=== PATIENT | female | born 1985 | race African-American/Black ===

== ENCOUNTER 2018-08-27 14:04 | Observation (INO) | payer MEDICARE, MEDICAID ==
[~2018-08-27] VITALS: Ht 167.6 cm; Wt 99.8 kg
[2018-08-27] MEDS ORDERED: ACETAMINOPHEN 500MG TABLET PO ONE (14:45)
[2018-08-27 15:22] LABS: CLARITY URINE CLOUDY (CLEAR); COLOR URINE YELLOW (YELLOW); SPECIFIC GRAVITY URINE 1.022 (1.005-1.030)
[2018-08-27 15:23] LABS: KETONES URINE NEGATIVE (NEGATIVE); LEUKOCYTE ESTERASE URINE 1+ (NEGATIVE); NITRITE URINE POSITIVE (NEGATIVE); OCCULT BLOOD URINE 3+ (NEGATIVE); PROTEIN URINE 2+ (NEGATIVE)
[2018-08-27] MEDS ORDERED: PNV1TABL50 PO (16:46)
== END 2018-08-27 16:50 | disposition home or self-care (01) ==
LOC: 8 EST LDRP 14:04
PROVIDERS: ADMIT Obstetrics & Gynecology; ATTEND Obstetrics & Gynecology
DX: O36.8120 Decreased fetal movements, second trimester, not applicable or unspecified (principal); O26.892 Other specified pregnancy related conditions, second trimester; R10.2 Pelvic and perineal pain; N89.8 Other specified noninflammatory disorders of vagina; Z3A.26 26 weeks gestation of pregnancy
CPT/HCPCS: 81003; 87077; 87086; 87186; 99281; G0378

== ENCOUNTER 2018-11-12 07:42 | Observation (INO) | payer MEDICARE, MEDICAID ==
[~2018-11-12] VITALS: Ht 167.6 cm; Wt 105.2 kg
[~2018-11-12 07:42] MED LIST: PNV1TABL50 PO
== END 2018-11-12 09:10 | disposition home or self-care (01) ==
LOC: 8 EST LDRP 07:42
PROVIDERS: ADMIT Obstetrics & Gynecology; ATTEND Obstetrics & Gynecology
DX: O26.893 Other specified pregnancy related conditions, third trimester (principal); R10.9 Unspecified abdominal pain; Z3A.37 37 weeks gestation of pregnancy
CPT/HCPCS: 99281; G0378

== ENCOUNTER 2018-11-14 16:18 | Inpatient (IN) | payer MEDICARE, MEDICAID ==
[~2018-11-14] VITALS: Ht 170.2 cm; Wt 105.7 kg
[2018-11-14] MEDS ORDERED: CARBOPROST TROMETHAMINE 250 MCG/ML AMPUL IM PRN (17:15)
[2018-11-14] MEDS ORDERED: METHYLERGONOVINE MALEATE 0.2 MG/ML IM PRN (17:15)
[2018-11-14] MEDS ORDERED: OXYTOCIN 20 UNITS in LACTATED RINGERS 1,000 ML IV SCH (17:15)
[2018-11-14] MEDS ORDERED: CITRIC ACID/SODIUM CITRATE SOLN 30ML UDC PO NR (17:30)
[2018-11-14] MEDS ORDERED: LIDOCAINE HCL/PF 1% 10 MG/ML 5ML VIAL ONE (17:45)
[2018-11-14] MEDS: LACTATED RINGERS 1,000 ML IV SCH ×2 (17:57→19:25)
[2018-11-14] MEDS ORDERED: FENTANYL CITRATE/PF 50MCG/ML 2ML VIAL ONE (18:23)
[2018-11-14] MEDS ORDERED: MIDAZOLAM HCL 2 MG/2 ML VIAL ONE ×3 (18:23→20:15)
[2018-11-14] MEDS ORDERED: CEFAZOLIN SODIUM 1000MG/VIAL ONE (18:24)
[2018-11-14] MEDS ORDERED: MORPHINE SULFATE/PF 1MG/ML 10ML AMP ONE (18:24)
[2018-11-14] MEDS ORDERED: BUPIVACAINE HCL/DEXTROSE/PF 0.75% 2ML AMP INJ ONE (18:25)
[2018-11-14] MEDS ORDERED: EPHEDRINE SULFATE 50MG/ML VIAL ONE (18:25)
[2018-11-14] MEDS ORDERED: PHENYLEPHRINE HCL 10 MG/ML 1ML (IV VIAL) IV ONE (18:25)
[2018-11-14] MEDS ORDERED: GLYCOPYRROLATE 0.2 MG/ML 2ML VIAL ONE (18:25)
[2018-11-14 19:14] LABS: BASOPHILS % 0.4 % (0.0-2.0); EOSINOPHILS % 0.6 % (0.0-5.0); HEMATOCRIT. 37.3 % (36.0-48.0); HEMOGLOBIN. 12.4 g/dL (12.0-16.0); LYMPHOCYTES % 21.9 % (20.0-50.0); MEAN CORPUSCULAR HEMOGLOBIN 30.3 pg (28.0-32.0); MEAN PLATELET VOLUME 10.2 fl (7.4-10.4); MONOCYTES % 7.1 % (2.0-8.0); PLATELET 153 x1000/uL (130-400); RED CELL DISTRIBUTION WIDTH 14.2 % (11.6-14.6)
[2018-11-14 19:15] LABS: CLARITY URINE CLOUDY (CLEAR); COLOR URINE YELLOW (YELLOW); KETONES URINE 1+ (NEGATIVE); LEUKOCYTE ESTERASE URINE 3+ (NEGATIVE); NITRITE URINE NEGATIVE (NEGATIVE); OCCULT BLOOD URINE 2+ (NEGATIVE); PROTEIN URINE NEGATIVE (NEGATIVE); SPECIFIC GRAVITY URINE 1.008 (1.005-1.030); UROBILINOGEN URINE 0.2 E.U./dL (0.2-1.0)
[2018-11-14 19:25] LABS: *AMPHETAMINES SCREEN URINE NEGATIVE (NEGATIVE); *BARBITURATES SCREEN URINE NEGATIVE (NEGATIVE); *BENZODIAZEPINES SCREEN URINE NEGATIVE (NEGATIVE)
[2018-11-14 19:26] LABS: *COCAINE SCREEN URINE NEGATIVE (NEGATIVE); CANNABINOID URINE SCREEN NEGATIVE (NEGATIVE); METHADONE URINE SCREEN NEGATIVE (NEGATIVE); OPIATES URINE SCREEN NEGATIVE (NEGATIVE); PHENCYCLIDINE URINE SCREEN NEGATIVE (NEGATIVE)
[2018-11-14 19:26] LABS: INR 0.9; PARTIAL THROMBOPLASTIN TIME 29.1 sec (23.4-31.0); PROTHROMBIN TIME 9.8 sec (9.6-11.0)
[2018-11-14 19:58] LABS: HEPATITIS B SURFACE ANTIGEN NEGATIVE
[2018-11-14] MEDS ORDERED: OXYTOCIN 10 UNITS/ML 1ML ONE (20:10)
[2018-11-14] MEDS ORDERED: KETOROLAC 60MG/2ML VIAL IM ONE (20:39)
[2018-11-14] MEDS ORDERED: DEXT 5%/LR + PITOCIN 20UNITS/L 1,000 ML IV SCH (20:51)
[2018-11-14] MEDS ORDERED: RHO(D) IMMUNE GLOBULIN 300 MCG/SYR IM PRN (21:00)
[2018-11-14] MEDS ORDERED: IBUPROFEN 400MG TABLET PO PRN (21:00)
[2018-11-14] MEDS ORDERED: BISACODYL 10MG SUPP PR PRN (21:00)
[2018-11-14] MEDS ORDERED: KETOROLAC 30MG/ML VIAL IV PRN (21:15)
[2018-11-14] MEDS ORDERED: BUTORPHANOL TARTRATE 2 MG/ML VIAL IV PRN (21:15)
[2018-11-14] MEDS ORDERED: NALOXONE HCL 0.4 MG/ML 1ML VIAL IV PRN (21:15)
[2018-11-14 23:00] VITALS: BP 125/77
[2018-11-14 23:30] VITALS: BP 122/70
[2018-11-14] MEDS: DIPHENHYDRAMINE 50MG/ML VIAL IV PRN (23:35)
[2018-11-15] VITALS: BP 118/64
[2018-11-15 03:30] VITALS: BP 125/73
[2018-11-15] MEDS: IBUPROFEN 800MG TABLET PO PRN ×2 (08:17→16:34)
[2018-11-15 08:30] VITALS: BP 111/69
[2018-11-15 12:00] LABS: BASOPHILS % 0.4 % (0.0-2.0); EOSINOPHILS % 0.7 % (0.0-5.0); HEMATOCRIT. 35.3 % (36.0-48.0); HEMOGLOBIN. 11.9 g/dL (12.0-16.0); LYMPHOCYTES % 11.5 % (20.0-50.0); MEAN CORPUSCULAR HEMOGLOBIN 30.5 pg (28.0-32.0); MEAN CORPUSCULAR VOLUME 90.7 fL (81.0-99.0); MEAN PLATELET VOLUME 10.3 fl (7.4-10.4); MONOCYTES % 9.6 % (2.0-8.0); NEUTROPHILS % 77.8 % (40.0-76.0); PLATELET 147 x1000/uL (130-400); RED BLOOD CELL COUNT 3.89 mill/uL (4.2-5.4); RED CELL DISTRIBUTION WIDTH 14.2 % (11.6-14.6)
[2018-11-15 16:45] VITALS: BP 113/75
[2018-11-15 20:00] VITALS: BP 118/76
[2018-11-15] MEDS: DIPHENHYDRAMINE 50MG/ML VIAL IV PRN (20:37)
[2018-11-15] MEDS ORDERED: HYDROMORPHONE HCL/PF 2MG/ML CPJ IM PRN (21:00)
[2018-11-15 21:14] LABS: BASOPHILS % 0.6 % (0.0-2.0); EOSINOPHILS % 1.3 % (0.0-5.0); HEMOGLOBIN. 11.7 g/dL (12.0-16.0); LYMPHOCYTES % 16.5 % (20.0-50.0); MEAN CORPUSCULAR HEMOGLOBIN 30.5 pg (28.0-32.0); MEAN PLATELET VOLUME 10.2 fl (7.4-10.4); MONOCYTES % 8.7 % (2.0-8.0); NEUTROPHILS % 72.9 % (40.0-76.0); PLATELET 147 x1000/uL (130-400); RED BLOOD CELL COUNT 3.85 mill/uL (4.2-5.4); RED CELL DISTRIBUTION WIDTH 14.2 % (11.6-14.6)
[2018-11-15] MEDS: CEFAZOLIN 2,000 MG in DEXT 5% WATER 100 ML IV SCH (21:22)
[2018-11-16] MEDS: CEFAZOLIN 2,000 MG in DEXT 5% WATER 100 ML IV SCH ×4 (02:27→19:56)
[2018-11-16] MEDS: ACETAMINOPHEN WITH CODEINE 300/30MG TABLET PO PRN ×2 (03:55→08:32)
[2018-11-16 04:30] VITALS: BP 115/68
[2018-11-16] MEDS: IBUPROFEN 800MG TABLET PO PRN ×2 (08:32→17:44)
[2018-11-16 09:00] VITALS: BP 124/79
[2018-11-16 16:00] VITALS: BP 128/80
[2018-11-16 22:00] VITALS: BP 116/77
[2018-11-16] MEDS ORDERED: TETANUS, DIPHTHERIA, PERTUSSIS VAC/PF 0.5ML (>7YR OLD) IM ONE (23:45)
[2018-11-17] MEDS: CEFAZOLIN 2,000 MG in DEXT 5% WATER 100 ML IV SCH ×2 (01:52→08:36)
[2018-11-17] MEDS: IBUPROFEN 800MG TABLET PO PRN ×2 (05:40→11:16)
[2018-11-17 06:00] VITALS: BP 118/75
[2018-11-17 08:00] VITALS: BP 120/74
[2018-11-17] MEDS: ACETAMINOPHEN WITH CODEINE 300/30MG TABLET PO PRN (08:34)
== END 2018-11-17 12:20 | disposition home or self-care (01) | DRG 787 ==
LOC: OBSVTOIN 16:18 → 8 EST LDRP 16:18 → 8EST 22:33
PROVIDERS: ADMIT Obstetrics & Gynecology; ATTEND Obstetrics & Gynecology
PROC: 10D00Z1 Extraction of Products of Conception, Low, Open Approach (ICD-10-PCS; principal; 2018-11-14)
DX: O34.211 Maternal care for low transverse scar from previous cesarean delivery (principal); O86.4 Pyrexia of unknown origin following delivery; Z3A.37 37 weeks gestation of pregnancy; Z37.0 Single live birth
CPT/HCPCS: 36415; 80305; 82565; 82947; 84520; 86592; 86703; 86762; 86850; 86900; 86920; 87070; 87340; 88307; 99281; G0378; J0690; J1200; J1885; J2250; J2274; J2370; J2590; J3010; J3490; J7060; J7120; A4315

== ENCOUNTER 2019-01-02 15:40 | Emergency (ER) | payer MEDICARE, MEDICAID | END 2019-01-02 20:04 | disposition left against medical advice (07) | LOC: ER 18:30 | DX: Z53.21 Procedure and treatment not carried out due to patient leaving prior to being seen by health care provider (principal) ==

== ENCOUNTER 2019-01-05 19:22 | Emergency (ER) | payer MEDICARE, MEDICAID ==
[~2019-01-05] VITALS: Ht 167.6 cm; Wt 97.0 kg
[2019-01-06 00:33] LABS: BASOPHILS % 0.7 % (0.0-2.0); EOSINOPHILS % 1.3 % (0.0-5.0); HEMATOCRIT. 39.3 % (36.0-48.0); HEMOGLOBIN. 13.3 g/dL (12.0-16.0); MEAN CORPUSCULAR HEMOGLOBIN 30.8 pg (28.0-32.0); MEAN PLATELET VOLUME 8.8 fl (7.4-10.4); MONOCYTES % 4.8 % (2.0-8.0); NEUTROPHILS % 54.2 % (40.0-76.0); PLATELET 157 x1000/uL (130-400); RED BLOOD CELL COUNT 4.32 mill/uL (4.2-5.4); RED CELL DISTRIBUTION WIDTH 15.4 % (11.6-14.6)
[2019-01-06 00:41] LABS: CHLORIDE 103 mEq/L (98-107)
[2019-01-06 00:52] LABS: B-HCG QUANTITATIVE < 1 mIU/mL (<3)
[2019-01-06 01:27] VITALS: BP 134/83
== END 2019-01-06 01:30 | disposition home or self-care (01) ==
LOC: ER 22:22
DX: R30.0 Dysuria (principal); N93.9 Abnormal uterine and vaginal bleeding, unspecified; R31.9 Hematuria, unspecified; F17.200 Nicotine dependence, unspecified, uncomplicated; Z98.890 Other specified postprocedural states
CPT/HCPCS: 36415; 76830; 76856; 81025; 84702; 86850; 86900; 99284

== ENCOUNTER 2019-04-19 10:23 | Inpatient (IN) | payer MEDICARE, MEDICAID ==
[~2019-04-19] VITALS: Ht 167.6 cm; Wt 91.6 kg
[2019-04-19] MEDS ORDERED: ACETAMINOPHEN 325MG TABLET PO STA (11:14)
[2019-04-19] MEDS ORDERED: SODIUM CHLORIDE 0.9% 1000ML BAG (SEPSIS BOLUS) IV ONE (11:15)
[2019-04-19 11:46] LABS: BASOPHILS % 0.3 % (0.0-2.0); HEMATOCRIT. 38.4 % (36.0-48.0); HEMOGLOBIN. 12.9 g/dL (12.0-16.0); MEAN CORPUSCULAR HEMOGLOBIN 31.4 pg (28.0-32.0); MEAN CORPUSCULAR VOLUME 93.3 fL (81.0-99.0); MEAN PLATELET VOLUME 8.8 fl (7.4-10.4); MONOCYTES % 7.7 % (2.0-8.0); PLATELET 170 x1000/uL (130-400); RED BLOOD CELL COUNT 4.11 mill/uL (4.2-5.4); RED CELL DISTRIBUTION WIDTH 13.1 % (11.6-14.6)
[2019-04-19 11:52] LABS: CHLORIDE 101 mEq/L (98-107)
[2019-04-19 12:12] LABS: CLARITY URINE TURBID (CLEAR); COLOR URINE YELLOW (YELLOW); KETONES URINE 3+ (NEGATIVE); LEUKOCYTE ESTERASE URINE 2+ (NEGATIVE); NITRITE URINE POSITIVE (NEGATIVE); OCCULT BLOOD URINE 1+ (NEGATIVE); PROTEIN URINE 2+ (NEGATIVE); SPECIFIC GRAVITY URINE 1.023 (1.005-1.030)
[2019-04-19] MEDS ORDERED: CEFTRIAXONE 1 G PREMIX 50 ML IV ONE (13:30)
[2019-04-19] MEDS ORDERED: ONDANSETRON HCL 4MG/2ML INJ IV ONE (14:45)
[2019-04-19] MEDS ORDERED: SODIUM CHLORIDE 0.9% 1,000 ML IV ONE (14:45)
[2019-04-19] MEDS ORDERED: IPRATROPIUM/ALBUTEROL 0.5-3(2.5)MG/3ML NEB HHN PRN (16:00)
[2019-04-19] MEDS ORDERED: DOCUSATE SODIUM 100MG CAPSULE PO PRN (16:00)
[2019-04-19] MEDS ORDERED: ONDANSETRON HCL 4MG/2ML INJ IV PRN (16:00)
[2019-04-19] MEDS ORDERED: ACETAMINOPHEN 650MG SUPP PR PRN (16:00)
[2019-04-19] MEDS ORDERED: GUAIFENESIN 200MG/10ML SUGAR FREE UDC PO PRN (16:00)
[2019-04-19] MEDS ORDERED: NA PHOS,M-B/NA PHOS,DI-BA ENEMA 118ML PR PRN (16:00)
[2019-04-19] MEDS ORDERED: DIPHENHYDRAMINE 50MG/ML VIAL IV PRN (16:00)
[2019-04-19] MEDS ORDERED: MAGNESIUM/ALUMINUM HYDROXIDE/SIMETHICONE 30ML UDC PO PRN (16:00)
[2019-04-19] MEDS ORDERED: CLONIDINE 0.1MG TABLET PO PRN (16:00)
[2019-04-19 16:10] VITALS: BP 112/59
[2019-04-19] MEDS ORDERED: LEVOFLOXACIN 500MG PREMIX 100 ML IV SCH (18:00)
[2019-04-19] MEDS: ACETAMINOPHEN 650MG/20.3ML UDC GT PRN (18:10)
[2019-04-19] MEDS: ENOXAPARIN 30MG/0.3ML SYR SUBCUT SCH (18:28)
[2019-04-19] MEDS: DEXT 5%/0.45% NACL 1000ML 1,000 ML IV SCH (18:29)
[2019-04-19 20:00] VITALS: BP 89/48
[2019-04-19] MEDS: SODIUM CHLORIDE 0.9% INJ 3ML FLUSH IVF SCH (22:00)
[2019-04-20] VITALS: BP 129/79
[2019-04-20] MEDS: ACETAMINOPHEN 650MG/20.3ML UDC GT PRN (00:37)
[2019-04-20 04:00] VITALS: BP 93/54
[2019-04-20] MEDS: ENOXAPARIN 30MG/0.3ML SYR SUBCUT SCH ×2 (05:46→17:38)
[2019-04-20] MEDS: SODIUM CHLORIDE 0.9% INJ 3ML FLUSH IVF SCH ×3 (06:00→22:00)
[2019-04-20 06:54] LABS: HEMATOCRIT. 35.1 % (36.0-48.0); HEMOGLOBIN. 11.9 g/dL (12.0-16.0); MEAN CORPUSCULAR HEMOGLOBIN 31.8 pg (28.0-32.0); MEAN CORPUSCULAR VOLUME 93.8 fL (81.0-99.0); MEAN PLATELET VOLUME 9.7 fl (7.4-10.4); PLATELET 146 x1000/uL (130-400); RED BLOOD CELL COUNT 3.74 mill/uL (4.2-5.4); RED CELL DISTRIBUTION WIDTH 13.4 % (11.6-14.6)
[2019-04-20 08:00] VITALS: BP 116/69
[2019-04-20] MEDS ORDERED: POTASSIUM CHLORIDE 20MEQ TABLET SR PO SCH (09:45)
[2019-04-20 11:13] LABS: CHLORIDE 108 mEq/L (98-107)
[2019-04-20 11:18] LABS: LDL CHOLESTEROL 99 mg/dL (5-100)
[2019-04-20 11:20] LABS: HDL CHOLESTEROL 56 mg/dL (40-59)
[2019-04-20 12:00] VITALS: BP 92/48
[2019-04-20 12:06] LABS: *BARBITURATES SCREEN URINE NEGATIVE (NEGATIVE); *COCAINE SCREEN URINE NEGATIVE (NEGATIVE)
[2019-04-20 12:07] LABS: *AMPHETAMINES SCREEN URINE NEGATIVE (NEGATIVE); *BENZODIAZEPINES SCREEN URINE NEGATIVE (NEGATIVE); METHADONE URINE SCREEN NEGATIVE (NEGATIVE); OPIATES URINE SCREEN NEGATIVE (NEGATIVE)
[2019-04-20 12:08] LABS: CANNABINOID URINE SCREEN NEGATIVE (NEGATIVE); PHENCYCLIDINE URINE SCREEN NEGATIVE (NEGATIVE)
[2019-04-20] MEDS: DEXT 5%/0.45% NACL 1000ML 1,000 ML IV SCH ×2 (12:15→22:15)
[2019-04-20] MEDS: HYDROCODONE/ACETAMINOPHEN 5/325MG TABLET PO PRN ×2 (14:36→23:50)
[2019-04-20] MEDS ORDERED: MIRT-91 MT (14:45)
[2019-04-20 16:00] VITALS: BP 96/43
[2019-04-20] MEDS: ACETAMINOPHEN 325MG TABLET PO PRN (16:18)
[2019-04-20 20:00] VITALS: BP 108/55
[2019-04-20] MEDS ORDERED: LEVOFLOXACIN 500MG PREMIX 100 ML IV SCH (20:00)
[2019-04-21] VITALS: BP 114/40
[2019-04-21 04:00] VITALS: BP 96/43
[2019-04-21] MEDS: ENOXAPARIN 30MG/0.3ML SYR SUBCUT SCH (05:24)
[2019-04-21] MEDS: SODIUM CHLORIDE 0.9% INJ 3ML FLUSH IVF SCH (06:00)
[2019-04-21] MEDS: ACETAMINOPHEN 325MG TABLET PO PRN (06:05)
[2019-04-21 07:08] LABS: BASOPHILS % 0.3 % (0.0-2.0); EOSINOPHILS % 0.3 % (0.0-5.0); HEMOGLOBIN. 11.4 g/dL (12.0-16.0); LYMPHOCYTES % 17.5 % (20.0-50.0); MEAN CORPUSCULAR HEMOGLOBIN 31.4 pg (28.0-32.0); MEAN PLATELET VOLUME 9.4 fl (7.4-10.4); MONOCYTES % 9.1 % (2.0-8.0); NEUTROPHILS % 72.8 % (40.0-76.0); PLATELET 148 x1000/uL (130-400); RED BLOOD CELL COUNT 3.62 mill/uL (4.2-5.4); RED CELL DISTRIBUTION WIDTH 13.5 % (11.6-14.6)
[2019-04-21 07:20] LABS: CHLORIDE 108 mEq/L (98-107)
[2019-04-21 08:00] VITALS: BP 98/48
[2019-04-21] MEDS: DEXT 5%/0.45% NACL 1000ML 1,000 ML IV SCH (09:29)
[2019-04-21] MEDS ORDERED: CEPH-569 MT (10:45)
[2019-04-21 10:51] LABS: PLATELET ESTIMATE NORMAL
[2019-04-21 11:57] VITALS: BP 98/48
[2019-04-21] MEDS: ACETAMINOPHEN 650MG/20.3ML UDC GT PRN (13:21)
[2019-04-21] MEDS ORDERED: CEFTRIAXONE 1 G PREMIX 50 ML IV SCH (14:00)
== END 2019-04-21 13:45 | disposition home or self-care (01) | DRG 690 ==
LOC: ER 10:23 → 6EST 14:55 → EDBEDREQTM 15:03 → ENRESERV 15:14
PROVIDERS: ADMIT Family Medicine; ATTEND Family Medicine
DX: N10 Acute pyelonephritis (principal); E87.1 Hypo-osmolality and hyponatremia; R65.10 Systemic inflammatory response syndrome (SIRS) of non-infectious origin without acute organ dysfunction; F17.200 Nicotine dependence, unspecified, uncomplicated; Z98.891 History of uterine scar from previous surgery; Z86.73 Personal history of transient ischemic attack (TIA), and cerebral infarction without residual deficits; E86.0 Dehydration; E87.5 Hyperkalemia
CPT/HCPCS: 36415; 76700; 80061; 80305; 81003; 83605; 93005; 96365; 99285; J0696; J1200; J1650; J1956; J2405; J7030

== ENCOUNTER 2019-04-25 13:01 | Emergency (ER) | payer MEDICARE, MEDICAID ==
[~2019-04-25] VITALS: Ht 167.6 cm; Wt 92.0 kg
[~2019-04-25 13:01] MED LIST changes: +CEPH-569 MT; +MIRT-91 MT
[2019-04-25 13:45] VITALS: BP 122/65
== END 2019-04-25 14:39 | disposition left against medical advice (07) ==
LOC: ER 13:01
DX: R53.1 Weakness (principal); Z53.21 Procedure and treatment not carried out due to patient leaving prior to being seen by health care provider